=== PATIENT | male | born 1960 | race Caucasian/White ===

== ENCOUNTER 2018-02-01 09:04 | Inpatient (IN) | payer OTHER ==
[~2018-02-01] VITALS: Ht 175.3 cm; Wt 98.0 kg
[2018-02-01 09:09] VITALS: BP 128/78
[2018-02-01] MEDS ORDERED: ADVAIR HFA 230M12 GM INH (09:16)
[2018-02-01] MEDS ORDERED: SINGULAIR 10 MG10 M1 PO (09:16)
[2018-02-01] MEDS ORDERED: INCRUSE ELLI62.5 MCG (09:16)
[2018-02-01] MEDS ORDERED: PROAIR HFA8.5 GM INH (09:17)
[2018-02-01] MEDS ORDERED: FLONASE 0.05%50 MCG NASAL (09:17)
[2018-02-01] MEDS ORDERED: DIFLUCAN200 MG PO (09:18)
[2018-02-01 09:41] LABS: HEMATOCRIT 47.1 % (42.0-52.0); HEMOGLOBIN 15.7 gm/dL (14.0-18.0); MCH 29.7 pg (26.0-34.0); MCHC 33.3 g/dL (28.0-37.0); MCV 89.2 fL (80.0-100.0); NUCLEATED RBCS 0 /100WBC; PLATELET COUNT* 224 thou/uL (150-400); RBC 5.29 mil/uL (4.50-6.00); WBC 10.1 thou/uL (4.0-11.0)
[2018-02-01 09:49] LABS: CALCIUM 8.6 mg/dL (8.5-10.1); CREATININE 1.3 mg/dL (0.6-1.3)
[2018-02-01 09:54] LABS: ALBUMIN 3.7 g/dL (3.4-5.0); MAGNESIUM 2.1 mg/dL (1.8-2.4); TOTAL BILIRUBIN 0.7 mg/dL (<0.1-1.0); TOTAL PROTEIN 7.1 g/dL (6.4-8.2)
[2018-02-01 10:16] LABS: ABSOLUTE BASOPHILS 0.1 thou/uL (0.0-0.2); ABSOLUTE EOSINOPHILS 2.6 thou/uL (0.0-0.7); ABSOLUTE LYMPHOCYTES 2.9 thou/uL (0.8-5.3); ABSOLUTE MONOCYTES 0.7 thou/uL (0.0-1.2); ABSOLUTE NEUTROPHILS 3.7 thou/uL (1.6-8.1); ATYPICAL LYMPHS 1 %
[2018-02-01 10:18] LABS: PLATELET ESTIMATE ADEQUATE
[2018-02-01 11:42] LABS: APTT 28.5 Seconds (25.0-31.3); PROTIME 10.6 Seconds (9.20-11.50)
[2018-02-01 14:34] VITALS: BP 0/0; BP 121/70
[2018-02-01 14:50] VITALS: BP 132/71
[2018-02-01 16:17] LABS: BE -1.7 mmol/L (-2 to +3); HCO3 22.9 mmol/L (22.0-26.0); PCO2 38.6 mmHg (35.0-45.0); PO2 74.2 mmHg (75.0-100.0); pH 7.391 (7.340-7.450)
[2018-02-01 17:39] VITALS: BP 156/91
[2018-02-01 20:49] VITALS: BP 142/65
[2018-02-02] VITALS: BP 110/52
[2018-02-02 04:00] VITALS: BP 118/65
[2018-02-02 04:44] LABS: HEMATOCRIT 42.5 % (42.0-52.0); HEMOGLOBIN 13.9 gm/dL (14.0-18.0); MCH 29.2 pg (26.0-34.0); MCHC 32.6 g/dL (28.0-37.0); MCV 89.7 fL (80.0-100.0); MPV 8.8 fl. (7.2-11.1); PLATELET COUNT* 217 thou/uL (150-400); RBC 4.74 mil/uL (4.50-6.00); RDW-CV 14.1 % (10.5-14.5); WBC 16.1 thou/uL (4.0-11.0)
[2018-02-02 05:12] LABS: CALCIUM 8.4 mg/dL (8.5-10.1); MAGNESIUM 2.1 mg/dL (1.8-2.4); POTASSIUM 4.4 mmol/L (3.5-5.1)
[2018-02-02 08:00] VITALS: BP 111/63
--- NOTE | 2018-02-02 11:20 | CON ---
[address] [address] CONSULTATION Name: KRISHNA CERNA Room: [address] M.R.#: [id number] Admission: 02/01/18 Attend Phys: Jonas Philippe MD Discharge: Date of : 64 Report #: [id number] THIS REPORT FOR: //name// CC: [facility] physician/PCP Jonas Philippe HISTORY OF PRESENT ILLNESS: This is a 57-year-old male patient who told me he had asthma since childhood, although things had been relatively quiet till 10 years ago. Prior to 10 years he would use albuterol here and there, but says for the last 10 years his asthma has become really persistent and severe. He received multiple courses of prednisone taper over the last 10 years; however, never been hospitalized before this time for it, never been intubated. He has strong family history of asthma. 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 He presented with increasing shortness of breath for a while now. He is even short of breath at rest with active wheezes. Although he did not have any fever or chills, his cough is so severe that he actually had multiple episodes of syncope in the last few days, which he had only once 3 years ago. He denied any fever or chills. He reported some headache with the cough. He denied any skin allergies. He reports that he saw Dr. [facility]anc[facility] [place]. He is currently on Advair, albuterol inhaler, albuterol nebulizer. He is on Incruse. The Incruse was added 3 months ago and he was told he had significant allergies. He had the allergy test, although he is not ready to start the allergy shots per the patient. He was actually supposed to see us in the office today, but because of distress he came into the ER. ALLERGIES: No known drug allergies, but he has multiple environmental allergies. HOME MEDICATIONS: He is on Advair, Flonase, Incruse, albuterol sulfate, Singulair, albuterol nebulizer and inhaler. PAST MEDICAL HISTORY: Severe persistent asthma. PAST SURGICAL HISTORY: No major surgeries other than nasal surgery. FAMILY HISTORY: Very strong family history of asthma. SOCIAL HISTORY: He does not smoke, drink alcohol or abuse drugs. REVIEW OF SYSTEMS: Twelve-point review of systems reviewed with the patient and negative other than as mentioned above. PHYSICAL EXAMINATION: VITAL SIGNS: He is on 2 liters oxygen, O2 saturation more than 90%, [place] [address] CONSULTATION Name: KRISHNA CERNA Room: [address] M.R.#: [id number] Admission: 02/01/18 Attend Phys: Jonas Philippe MD Discharge: Date of : 64 Report #: [id number] pressure 111/63, pulse rate of 100, temperature 36.7, respiratory rate is 20. HEENT: Head normocephalic, atraumatic. Pupils reactive to light. Not pale, not jaundiced. External ears look healthy and normal. Oral cavity, moist mucous membrane, Mallampati of 2. CHEST: Extensive wheezes heard bilaterally with diminished air movement. No crackles. HEART: S1, S2, no murmur. ABDOMEN: Benign, soft, lax, nontender. EXTREMITIES: Lower extremity, no edema. NEUROLOGIC: Moves all 4 extremities spontaneously. No focal weakness. SKIN: Normal for age and race, no rash. LYMPHATICS: No palpable lymph node. LABORATORY DATA: ABG 7.39/38/74 on room air. His creatinine is 0.1, BUN 21, potassium 4.4. His white blood count 10.1, hemoglobin 15.7 and platelets of 229. His absolute eosinophil count is 2.6 thousand per microliter. His chest x-ray was clear. IMPRESSION: 1. Acute respiratory failure. 2. Asthma exacerbation. 3. Severe persistent asthma. The patient with severe persistent asthma, saw an target aircraft technician before and has been told he has significant number of environmental allergies. At this point, he will be on IV steroids, scheduled nebulization treatments. The patient is on Incruse at home, Advair, had multiple doses of steroids in the past few months and he had syncopal episodes with cough. I will do an echocardiogram to make sure there are no cardiac structure abnormalities precipitated by the cough causing the syncope. He has elevated eosinophil, we will check his IgE level. He had allergy test done as an outpatient. Likely, he will need a repeat RAST at this point. We need to evaluate for possible benefits of Xolair at this point.Reviewed out patient negra, his FVC is low, will do Ct chest without contrast Discussed with the patient. Thank you for the consult. <ELECTRONICALLY SIGNED> By: Toby Rankin MD 02/02/18 1120 1047 [id number] Rankin MD /nt
[2018-02-02 11:23] LABS: ABSOLUTE MONOCYTES 0.5 thou/uL (0.0-1.2); ABSOLUTE NEUTROPHILS 14.7 thou/uL (1.6-8.1); PLATELET ESTIMATE ADEQUATE
[2018-02-02 12:27] VITALS: BP 122/44
[2018-02-02 16:00] VITALS: BP 115/49
--- NOTE | 2018-02-02 17:29 | 2DMMODE ---
[place] [address] 2 D/M-MODE ECHOCARDIOGRAM Name: KRISHNA CERNA Room: [address] IN [facility]#: [id number] Admission: 02/01/18 Attend Phys: Jonas Philippe, Discharge: Date of : 64 Date of Service: 02/02/18 1729 Report #: [id number] THIS REPORT FOR: //name// APPROVED REPORT Study performed: 02/02/2018 15:40:23 EXAM: Comprehensive 2D, Doppler, and color-flow Echocardiogram Patient Location: In-Patient Room #: 221 Status: routine BSA: 2.13 HR: 113 bpm BP: 122/44 mmHg Rhythm: NSR Other Information Study Quality: Good Indications Dyspnea Syncope 2D Dimensions IVSd: 11.02 (7-11mm) LVOT Diam: 20.30 (18-24mm) LVDd: 51.06 mm PWd: 9.43 (7-11mm) Ascending Ao: 30.90 (22-36mm) LVDs: 25.41 (25-40mm) Aortic Root: 27.07 mm Volumes Left Atrial Volume (Systole) LA ESV Index: 22.40 mL/m2 Aortic Valve AoV Peak Juan.: 2.16 m/s AO Peak Gr.: 18.72 mmHg LVOT Max P.49 mmHg AO Mean Gr.: 9.89 mmHg LVOT Mean P.45 mmHg LVOT Max V: 1.69 m/s AO V2 VTI: 29.49 cm LVOT Mean V: 1.06 m/s ALMA (VTI): 3.01 cm2 LVOT V1 VTI: 27.45 cm Mitral Valve E/A Ratio: 0.75 MV Decel. Time: 64.68 [place] [address] 2 D/M-MODE ECHOCARDIOGRAM Name: KRISHNA CERNA Room: [address] IN ..#: [id number] Admission: 02/01/18 Attend Phys: Jonas Philippe, Discharge: Date of : 64 Date of Service: 02/02/18 0009 Report #: [id number] MV E Max Juan.: 1.25 m/s MV PHT: 18.76 ms MVA (PHT): 11.73 cm2 TDI E/Lateral E': 7.81 E/Medial E': 11.36 Medial E' Juan.: 0.11 m/s Lateral E' Juan.: 0.16 m/s Pulmonary Valve PV Peak Juan.: 1.54 m/s PV Peak Gr.: 9.52 mmHg Tricuspid Valve RAP Estimate: 5.00 mmHg TR Peak Gr.: 30.12 mmHg RVSP: 35.00 mmHg PA Pressure: 35.00 mmHg Left Ventricle The left ventricle is normal size. There is normal LV segmental wall motion. There is normal left ventricular wall thickness. Left ventricular systolic function is normal. The left ventricular ejection fraction is within the normal range. LVEF is 65-70%. Grade I - abnormal relaxation pattern. Right Ventricle The right ventricle is normal size. The right ventricular systolic function is normal. Atria The left atrium size is normal. The right atrium size is normal. Aortic Valve The aortic valve is normal in structure. No aortic regurgitation is present. There is no aortic valvular stenosis. Mitral Valve The mitral valve is normal in structure. Trace mitral regurgitation. No evidence of mitral valve stenosis. Tricuspid Valve The tricuspid valve is normal in structure. Trace tricuspid regurgitation. estimate pa pressure 35 mm Hg Pulmonic Valve Pulmonic valve is not well visualized. There is [place] [address] 2 D/M-MODE ECHOCARDIOGRAM Name: KRISHNA CERNA KRISTIE Room: [address] IN [facility]#: [id number] Admission: 02/01/18 Attend Phys: Jonas Philippe, Discharge: Date of : 64 Date of Service: 02/02/18 1729 Report #: [id number] regurgitation. Great Vessels The aortic root is normal in size. IVC is not well visualized. Pericardium There is no pericardial effusion. <Conclusion> Left ventricular systolic function is normal. The left ventricular ejection fraction is within the normal range. <ELECTRONICALLY SIGNED> By: Alfonso Boothe MD, FACC 02/02/181728 28 28 Alfonso Boothe MD, FACC /INF
[2018-02-02 20:15] VITALS: BP 128/65
[2018-02-03] VITALS: BP 115/65
[2018-02-03 04:00] VITALS: BP 126/72
[2018-02-03 05:16] LABS: HEMATOCRIT 43.2 % (42.0-52.0); MCH 29.4 pg (26.0-34.0); MCHC 32.3 g/dL (28.0-37.0); MPV 9.3 fl. (7.2-11.1); RBC 4.75 mil/uL (4.50-6.00); RDW-CV 14.4 % (10.5-14.5); WBC 20.6 thou/uL (4.0-11.0)
[2018-02-03 05:29] LABS: CALCIUM 8.9 mg/dL (8.5-10.1); MAGNESIUM 2.4 mg/dL (1.8-2.4); POTASSIUM 4.8 mmol/L (3.5-5.1)
[2018-02-03 09:18] VITALS: BP 123/59
[2018-02-03 11:49] VITALS: BP 119/59
[2018-02-03 15:38] VITALS: BP 116/59
[2018-02-03 20:00] VITALS: BP 124/64
[2018-02-04] VITALS (7 sets, daily range): BP systolic 111–139; BP diastolic 56–74
[2018-02-05 04:33] VITALS: BP 131/75
[2018-02-05 04:56] LABS: HEMATOCRIT 41.2 % (42.0-52.0); HEMOGLOBIN 13.5 gm/dL (14.0-18.0); MCH 29.3 pg (26.0-34.0); MCHC 32.8 g/dL (28.0-37.0); MCV 89.3 fL (80.0-100.0); RBC 4.62 mil/uL (4.50-6.00); RDW-CV 14.5 % (10.5-14.5); WBC 13.6 thou/uL (4.0-11.0)
[2018-02-05 05:09] LABS: CALCIUM 8.6 mg/dL (8.5-10.1); MAGNESIUM 2.6 mg/dL (1.8-2.4); POTASSIUM 4.2 mmol/L (3.5-5.1)
[2018-02-05 08:47] VITALS: BP 131/78
[2018-02-05 12:00] VITALS: BP 133/77
[2018-02-05 16:00] VITALS: BP 142/86
[2018-02-05 20:28] VITALS: BP 111/62
[2018-02-06] VITALS: BP 123/66
[2018-02-06 04:00] VITALS: BP 135/80
[2018-02-06 04:49] LABS: HEMATOCRIT 42.2 % (42.0-52.0); MCH 29.9 pg (26.0-34.0); MCHC 33.1 g/dL (28.0-37.0); MCV 90.3 fL (80.0-100.0); MPV 9.2 fl. (7.2-11.1); RBC 4.67 mil/uL (4.50-6.00); RDW-CV 14.3 % (10.5-14.5); WBC 12.9 thou/uL (4.0-11.0)
[2018-02-06 05:56] LABS: ALBUMIN 3.3 g/dL (3.4-5.0); CALCIUM 8.3 mg/dL (8.5-10.1); CREATININE 1.1 mg/dL (0.6-1.3); MAGNESIUM 2.7 mg/dL (1.8-2.4); POTASSIUM 4.7 mmol/L (3.5-5.1); TOTAL BILIRUBIN 0.5 mg/dL (<0.1-1.0); TOTAL PROTEIN 5.8 g/dL (6.4-8.2)
[2018-02-06 08:00] VITALS: BP 134/74
[2018-02-06 12:00] VITALS: BP 148/73
[2018-02-06 16:00] VITALS: BP 141/78
[2018-02-06 20:00] VITALS: BP 123/75
[2018-02-07 01:30] VITALS: BP 137/83
[2018-02-07 04:00] VITALS: BP 138/88
[2018-02-07 08:00] VITALS: BP 143/87
[2018-02-07 12:00] VITALS: BP 133/81
[2018-02-07 16:00] VITALS: BP 141/93
[2018-02-07 20:00] VITALS: BP 137/72
[2018-02-08] VITALS: BP 90/45
[2018-02-08 04:39] LABS: CALCIUM 7.9 mg/dL (8.5-10.1); MAGNESIUM 2.5 mg/dL (1.8-2.4)
[2018-02-08 04:42] LABS: HEMATOCRIT 43.7 % (42.0-52.0); HEMOGLOBIN 14.4 gm/dL (14.0-18.0); MCH 29.6 pg (26.0-34.0); MCV 89.9 fL (80.0-100.0); MPV 8.5 fl. (7.2-11.1); RBC 4.86 mil/uL (4.50-6.00); WBC 14.8 thou/uL (4.0-11.0)
[2018-02-08 05:04] VITALS: BP 146/79
[2018-02-08 08:00] VITALS: BP 131/83
[2018-02-08 12:00] VITALS: BP 133/81
[2018-02-08 16:00] VITALS: BP 124/85
[2018-02-08 20:10] VITALS: BP 130/77
[2018-02-09] VITALS: BP 135/90
[2018-02-09 04:00] VITALS: BP 130/78
[2018-02-09 08:00] VITALS: BP 140/68
[2018-02-09 12:00] VITALS: BP 131/75
[2018-02-09] MEDS ORDERED: BROVANA15 MCG/2 M INH (13:43)
[2018-02-09] MEDS ORDERED: PULMICORT0.5 MG/22 INH (13:44)
[2018-02-09] MEDS ORDERED: PEPCID20 MG PO (13:45)
[2018-02-09] MEDS ORDERED: IPRAT-ALBUT 0.5-3 ML INH (13:47)
[2018-02-09] MEDS ORDERED: PROTONIX40 M1 PO (13:48)
[2018-02-09] MEDS ORDERED: PREDNISONE 20 M20 MG PO (13:50)
[2018-02-09 13:52] VITALS: BP 131/75
== END 2018-02-09 14:32 | disposition home or self-care (01) | DRG 189 ==
LOC: M.ERS 09:04 → M.TBA-ER 12:41 → M.2W 12:41
PROVIDERS: Family Medicine; Personal Emergency Response Attendant; ADMIT Internal Medicine
DX: J96.00 Acute respiratory failure, unspecified whether with hypoxia or hypercapnia (principal); J45.51 Severe persistent asthma with (acute) exacerbation; I50.30 Unspecified diastolic (congestive) heart failure; E66.9 Obesity, unspecified; R73.9 Hyperglycemia, unspecified; T38.0X5A Adverse effect of glucocorticoids and synthetic analogues, initial encounter; L92.8 Other granulomatous disorders of the skin and subcutaneous tissue; D72.1 Eosinophilia; Z23 Encounter for immunization; Z82.5 Family history of asthma and other chronic lower respiratory diseases; Z68.31 Body mass index [BMI] 31.0-31.9, adult; Z91.048 Other nonmedicinal substance allergy status; Z79.899 Other long term (current) drug therapy

== ENCOUNTER → 2019-04-22 | Outpatient (CLI) | payer BC ==
[~2019-04-22] MED LIST: ADVAIR HFA 230M12 GM INH; BROVANA15 MCG/2 M INH; DIFLUCAN200 MG PO; FLONASE 0.05%50 MCG NASAL; INCRUSE ELLI62.5 MCG; IPRAT-ALBUT 0.5-3 ML INH; PEPCID20 MG PO; PREDNISONE 20 M20 MG PO; PROAIR HFA8.5 GM INH; PROTONIX40 M1 PO; PULMICORT0.5 MG/22 INH; SINGULAIR 10 MG10 M1 PO
== END ==
LOC: M.RAD 13:47
DX: M79.89 Other specified soft tissue disorders (principal); R79.89 Other specified abnormal findings of blood chemistry

== ENCOUNTER 2020-01-15 22:58 | Observation (INO) | payer BC ==
[~2020-01-15] VITALS: Ht 175.3 cm; Wt 99.8 kg
[2020-01-15 23:06] VITALS: BP 187/104
[2020-01-15 23:34] LABS: ABSOLUTE BASOPHILS 0.1 thou/uL (0.0-0.2); ABSOLUTE LYMPHOCYTES 5.4 thou/uL (0.8-5.3); ABSOLUTE MONOCYTES 1.7 thou/uL (0.0-1.2); BASOPHILS 0.9 %; EOSINOPHILS 6.9 %; HEMATOCRIT 47.9 % (42.0-52.0); HEMOGLOBIN 15.7 gm/dL (14.0-18.0); LYMPHOCYTES 38.3 %; MCH 28.7 pg (26.0-34.0); MCHC 32.7 g/dL (28.0-37.0); MCV 87.8 fL (80.0-100.0); MONOCYTES 11.8 %; MPV 8.6 fl. (7.2-11.1); NUCLEATED RBCS 0 /100WBC; PLATELET COUNT* 267 thou/uL (150-400); POLYS 42.1 %; RBC 5.45 mil/uL (4.50-6.00); RDW-CV 13.8 % (10.5-14.5); WBC 14.2 thou/uL (4.0-11.0)
[2020-01-15 23:43] LABS: CALCIUM 8.8 mg/dL (8.5-10.1); CREATININE 1.3 mg/dL (0.6-1.3); POTASSIUM 3.4 mmol/L (3.5-5.1)
[2020-01-15 23:54] LABS: ALBUMIN 3.6 g/dL (3.4-5.0); MAGNESIUM 2.1 mg/dL (1.8-2.4); TOTAL BILIRUBIN 0.5 mg/dL (<0.1-1.0); TOTAL PROTEIN 7.6 g/dL (6.4-8.2)
--- NOTE | 2020-01-16 01:34 | NUR ---
PT RETURNED FROM CT.
[2020-01-16 07:22] VITALS: BP 140/66
[2020-01-16 10:57] VITALS: BP 122/73
--- NOTE | 2020-01-16 12:51 | EKG ---
[place] [address] ELECTROCARDIOGRAM REPORT Name: KRISHNA CERNA Room: [address] M.R.#: [id number] Admission: 01/16/20 Attend Phys: Hector Silvestre Discharge: Date of : 64 Date of Service: 01/15/20 2303 Report #: [id number] THIS REPORT FOR: //name// [facility] ED Test Date: 2020-01-15 Test Time: 23:03:32 Pat Name: KRISHNA CERNA Department: Room: [facility] Gender: M Director Systems: [place] : 1960 Requested By: August Rome Order Number: [id number] MD: Jeferson Tinoco Measurements Intervals [employer] Rate: 111 P: 58 HI: 178 QRS: -42 QRSD: 99 T: 23 QT: 342 QTc: 465 Interpretive Statements Sinus tachycardia Left axis deviation Baseline wander in lead(s) V6 No previous ECG available for comparison Electronically Signed On 01-16-2020 12:50:49 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
[2020-01-16 14:45] VITALS: BP 131/79
[2020-01-16 16:00] VITALS: BP 129/79
--- NOTE | 2020-01-16 17:59 | NUR ---
PT IS AO X4 FROM ED THIS AFTERNOON, HE CAME IN WITH SUDDENT ONSET CHEST AND ARM PAIN. HE STATES HIS FATER HAD A HEART ATTACK AND HIS BROTHER HAS HTN. HE IS CURRENTLY ASYMPTOMATIC . HE IS AND HAS BEEN NSR ON TELE, VSS. HE IS TO SEE CARDIOLGY IN THE AM. EMORY
[2020-01-16 21:52] VITALS: BP 122/69
[2020-01-17] VITALS: BP 134/77
[2020-01-17 04:00] VITALS: BP 127/80
--- NOTE | 2020-01-17 05:34 | NUR ---
PT ALERT AND ORIENTED, UP AD AMANDA, NO PAIN/NAUSEA/. NO SOB. CARDIOLOGY CONSULTED. SLEPT ALL NIGHT.
[2020-01-17 06:55] LABS: CALCIUM 8.2 mg/dL (8.5-10.1); CREATININE 1.2 mg/dL (0.6-1.3); MAGNESIUM 2.3 mg/dL (1.8-2.4); POTASSIUM 3.8 mmol/L (3.5-5.1)
[2020-01-17 08:30] VITALS: BP 126/81
--- NOTE | 2020-01-17 09:56 | NUR ---
cm completed the initial assessment to discuss d/c planning. pt lives home w/his family. pt has good support system. pt is employeed. active. independent w/adls. pt has nebulizer. pt has no hx w/snf or hh. there are no anticipated cm needs at this time. cm to cont to follow.
[2020-01-17 12:00] VITALS: BP 130/80
--- NOTE | 2020-01-17 13:43 | CON ---
[address] [address] CONSULTATION Name: CERNAKRISHNA LOPEZ Room: [address] Alexandre Asif#: [id number] Admission: 01/16/20 Attend Phys: Hector Zapata, Discharge: Date of : 64 Report #: [id number] THIS REPORT FOR: //name// cc: Walter Molina MD, Dean L. MD ~ DATE OF SERVICE: 01/17/2020 CARDIOLOGY CONSULTATION PRIMARY CARE PHYSICIAN: Dr. Walter Molina. HISTORY OF PRESENT ILLNESS: The patient is a 59-year-old male who I was asked to see in the hospital today after complaining of chest pain. The patient has a long history of asthma. He was hospitalized here at [place] in 01/2018 with asthma exacerbation. He has been followed by the Pulmonary service. He does use inhalers at home. He is not very active at this time. 2 months ago, he was driving back from [place] and he suddenly felt nervous and started shaking all over and felt lightheaded. He then notes that 2 days ago he was at home when he again felt lightheaded, felt nervous, and began to shake all over. He felt some discomfort on the left side of his chest and left shoulder. He felt short of breath. He denied the pain being related to food. No belching or diarrhea. He has had no bleeding. He denied trauma to his chest or rash. He denies fever, cough or edema. He came to the hospital and was admitted for further evaluation and treatment. PAST MEDICAL HISTORY: Significant for history of hypertension, diabetes, hyperlipidemia. PAST SURGICAL HISTORY: He has had sinus surgeries. MEDICATIONS: On admission included Flonase, Singulair, Advair, and Pepcid. ALLERGIES: He had no known drug allergies. FAMILY HISTORY: His mother had hypertension. SOCIAL HISTORY: He is originally from [place]. He moved to [place] 10 years ago. 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 No smoking or alcohol abuse. REVIEW OF SYSTEMS: He apparently does snore at night. No history of asthma. No history of liver disease or kidney disease. 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 No cancer. No psychiatric illness. No chronic skin condition. PHYSICAL EXAMINATION: [place] [address] CONSULTATION Name: KRISHNA CERNA [address] [id number] Admission: 01/16/20 Attend Phys: Hector Zapata, Discharge: Date of : 64 Report #: [id number] GENERAL: Revealed a middle-aged male, lying in bed, appeared in no distress. VITAL SIGNS: He had a blood pressure of 130/80, pulse 70, and he is afebrile. HEENT: He was anicteric. Conjunctivae are pink. Mucous membranes moist. NECK: Veins nondistended. No carotid bruits. Neck supple. CHEST: Clear to auscultation. CARDIOVASCULAR: Regular rate and rhythm. ABDOMEN: Soft. EXTREMITIES: Had no edema. Posterior tibial pulse 1+ bilaterally. SKIN: Cool and dry. NEUROLOGIC: Nonfocal. LABORATORY DATA: His ECG on admission showed a sinus rhythm. There was no ST or T-wave change noted. His workup, he actually had an echocardiogram here 2 years ago in 2018 when he was admitted with asthma that showed normal ejection fraction. His x-rays, he actually had a portable chest x-ray on admission that showed normal heart size, clear lung winkler. Previous CT scan of the chest 2 years ago showed no acute abnormality. His lab work, sodium 136 and creatinine 1.2. Troponins all 0.06. White blood cell count 14.2 and hemoglobin 15.7. IMPRESSION AND RECOMMENDATIONS: 1. Chest pain. Atypical for angina. acute coronary syndrome. I would recommend a stress echocardiogram. 2. Palpitations. No evidence of arrhythmias. 3. Asthma. 4. Snoring at night. I would rule out sleep apnea. <ELECTRONICALLY SIGNED> By: Alfonso Boothe MD, FACC 01/17/20 1343 0817 0831Dalea Boothe MD, FACC /nt
--- NOTE | 2020-01-17 15:14 | EXE ---
[place] [address] STRESS ECHOCARDIOGRAM Name: KRISHNA CERNA KRISTIE Room: [address] Laya#: [id number] Admission: 01/16/20 Attend Phys: Hector Silvestre Discharge: Date of : 64 Date of Service: 01/17/20 1513 Report #: [id number] THIS REPORT FOR: cc: Walter Molina MD, Dean L. MD Blick,Alfonso Henry MD [facility] ~ APPROVED REPORT Study performed: 01/17/2020 14:07:38 Exam: Stress Echocardiogram Indication: Chest pain Patient Location: In-Patient Stress Nurse: Kim Boogie RN Room #: [facility] Supervising Physician: Alfonso Boothe MD Ht: 5 ft 9 in HR: 78 bpm BP: 142/93 mmHg Medical History Cardiac Risk Factors: Age, , FHX of CAD Procedure The patient underwent an Exercise Stress Test using the Alessio Protocol. Blood pressure, heart rate, and EKG were monitored. An Echocardiogram was performed by certified control systems technician in four stages in quad fashion. At peak stress, four selected images were obtained and placed side by side with resting images for comparison. Stress Test Details Stress Test: Exercise stress testing was performed using a Alessio protocol. HR Resting HR: 78 bpm Max Heart Rate (APMHR): 163 bpm Max HR Achieved: 152 bpm Target HR (85% APMHR): 138 bpm % of APMHR: 93 Recovery HR: 107 bpm HR response to stress: Normal HR response to stress BP Resting BP: 142/93 mmHg Max BP: 215/104 mmHg Recovery BP: 135/79 [place] [address] STRESS ECHOCARDIOGRAM Name: YONI CERNAJose G FLOWERS [address]: [address]#: [id number] Admission: 01/16/20 Attend Phys: Hector Silvestre Discharge: Date of : 64 Date of Service: 01/17/20 1513 Report #: [id number] BP response to stress: Normal blood pressure response to stress. ECG Resting ECG: Sinus Rhythm Stress ECG: Sinus Tachycardia ST Change: Normal Maximum ST Deviation: 0 mm Arrhythmia: None Recovery ECG: Sinus Rhythm Recovery ST Change: Normal Recovery ST Deviation: 0 mm Recovery Arrhythmia: None Clinical Reason for Termination: Completed protocol Exercise duration: 10 min 10 sec Highest Stage Achieved: Stage 4: 4.2 mph at 16% grade. Exercise capacity: 11.37 METs Pre-Stress Echo The resting Echocardiogram showed normal left ventricular contractility with an estimated Ejection Fraction of about 60-65%. Post-Stress Echo The stress Echocardiogram showed normal left ventricular contractility with an estimated Ejection Fraction of about >70%. Compared to rest, there were no stress-induced wall motion abnormalities. Conclusion Clinical Response: Non-ischemic Exercise Capacity: Superior Stress ECG Response: Non-ischemic Stress Echo Images: Non-ischemic low risk stress echo for predicting future cardiac events Other Information Study Quality: Fair <Conclusion> low risk stress echo for predicting future cardiac events <ELECTRONICALLY SIGNED> By: Alfonso Boothe MD, [facility] 01/17/20 1513 1513 1513 Alfonso Boothe MD, FACC /INF
[2020-01-17 15:34] VITALS: BP 130/80
--- NOTE | 2020-01-17 16:08 | NUR ---
ASSESSMENT DOCUMENTED. MEDS GIVEN PER E-MAR. IV PATENT. PT WENT TO STRESS ECHO THIS SHIFT. DISCHARGE ORDERS RECIEVED. FLU SHOT GIVEN. DISCHARGE EDUCATION GIVEN. PT WHEELED OUT TO CAR WITH SPOUCE.
[2020-01-17 16:11] VITALS: BP 130/80
== END 2020-01-17 16:00 | disposition home or self-care (01) ==
LOC: M.ERS 22:58 → M.2W 01-16 01:10 → M.TBA-ER 01-16 01:10 → M.2W 01-16 14:50
PROVIDERS: Emergency Medicine Emergency Medical Services; ADMIT Family Medicine; ATTEND Family Medicine
DX: R07.89 Other chest pain (principal); I20.9 Angina pectoris, unspecified; J45.41 Moderate persistent asthma with (acute) exacerbation; E66.01 Morbid (severe) obesity due to excess calories; I10 Essential (primary) hypertension; R65.10 Systemic inflammatory response syndrome (SIRS) of non-infectious origin without acute organ dysfunction; E87.6 Hypokalemia; F41.9 Anxiety disorder, unspecified; R06.83 Snoring; E11.9 Type 2 diabetes mellitus without complications; E78.5 Hyperlipidemia, unspecified; Z79.899 Other long term (current) drug therapy; Z20.828 Contact with and (suspected) exposure to other viral communicable diseases; Z68.32 Body mass index [BMI] 32.0-32.9, adult

== ENCOUNTER → 2020-01-25 | Outpatient (CLI) | payer BC | LOC: M.PUL 16:30 | PROVIDERS: ATTEND Internal Medicine Critical Care Medicine | DX: J45.50 Severe persistent asthma, uncomplicated (principal) ==

== ENCOUNTER → 2020-06-13 | Outpatient (CLI) | payer OTHER ==
--- NOTE | 2020-06-28 18:02 | SLEEP ---
[address] [address] SLEEP STUDY REPORT Name: KRISHNA CERNA Room: [facility]#: [id number] Admission: 06/13/20 Attend Phys: Isidoro Byers MD Discharge: Date of : 64 Report #: [id number] THIS REPORT FOR: cc: Walter Molina MD, Dean L. MD Pervez,Isidoro TREVIZO ~ This study has been reviewed in its entirety by a board certified sleep specialist DATE OF SERVICE: 06/13/2020 SLEEP STUDY INDICATION FOR SLEEP STUDY: Excessive daytime sleepiness. INTERPRETATION: Total duration of the study is 511 minutes. In this time duration, we recorded a very large number of sleep related respiratory events. These included 372 obstructive apneas. In addition to 43 mixed apneas and 10 central apneas, there were also 60 hypopneas recorded. Overall, apnea-hypopnea index is very high at 57. Body position data indicates the patient was lying on the right side throughout the sleep study. The patient had severe hypoxemia during this sleep study. The patient overall spent 132 minutes below an O2 saturation of 88%. The patient at one point even desaturated to 62% O2 saturation and overall spent 50 minutes below an O2 saturation of 80%. Mean heart rate is 74. IMPRESSION: 1. Severe obstructive sleep apnea with an apnea-hypopnea index of 57. 2. There is severe nocturnal hypoxemia. The lowest O2 saturation is 62%. The patient spent 132 minutes below an O2 saturation of 88%, out of which 50 minutes were spent at an O2 saturation less than 80%. 3. Body position data indicates the patient was lying on the right side throughout the sleep study. RECOMMENDATIONS: 1. Recommend proceeding to an in-lab sleep study for positive airway pressure titration. Due to the presence of severe nocturnal hypoxemia, it would not be appropriate to use a CPAP auto titrated device without performing a titration in the sleep lab. It is noted that I had, in fact, initially ordered a sleep study in the sleep lab; however, the patient's insurance had denied this and therefore, we performed a home sleep study first. 2. [place] [address] SLEEP STUDY REPORT Name: KRISHNA CERNA Room: [facility]#: [id number] Admission: 06/13/20 Attend Phys: Isidoro Byers MD Discharge: Date of : 64 Report #: [id number] 3. Recommend avoiding driving or other activities requiring vigilance if drowsy. I will also evaluate for other etiologies of hypoxemia. This entire sleep study was reviewed by board certified sleep physician. <ELECTRONICALLY SIGNED> By: Isidoro Byers MD 06/28/20 1802 1701 1737Anikhil Byers MD /nt
== END ==
LOC: M.SLEEPLAB 04-11 21:00 → M.PUL 04-20 09:00
PROVIDERS: ATTEND Internal Medicine Critical Care Medicine
DX: G47.33 Obstructive sleep apnea (adult) (pediatric) (principal); G47.10 Hypersomnia, unspecified

== ENCOUNTER → 2020-07-03 | Outpatient (CLI) | payer BC ==
--- NOTE | 2020-07-03 12:36 | 2DMMODE ---
[place] [address] 2 D/M-MODE ECHOCARDIOGRAM Name: YONI CERNAJose G FLOWERS Room: [facility]#: [id number] Admission: 07/03/20 Attend Phys: Isidoro Byers MD Discharge: Date of : 64 Date of Service: 07/03/20 1235 Report #: [id number] THIS REPORT FOR: cc: Walter Molina MD, Dean L. MD Holkins,Sedrick Gallagher MD [facility] ~ APPROVED REPORT Study performed: 07/03/2020 09:53:47 EXAM: Comprehensive 2D, Doppler, and color-flow Echocardiogram Patient Location: Out-Patient BSA: 2.11 HR: 77 bpm BP: 122/68 mmHg Other Information Study Quality: Good Indications Dyspnea 2D Dimensions IVSd: 10.72 (7-11mm) LVOT Diam: 20.48 (18-24mm) LVDd: 51.04 mm PWd: 9.87 (7-11mm) Ascending Ao: 25.63 (22-36mm) LVDs: 30.48 (25-40mm) Aortic Root: 27.04 mm Volumes Left Atrial Volume (Systole) LA ESV Index: 12.90 mL/m2 Aortic Valve AoV Peak Juan.: 1.43 m/s AO Peak Gr.: 8.18 mmHg LVOT Max P.43 mmHg AO Mean Gr.: 4.43 mmHg LVOT Mean P.30 mmHg LVOT Max V: 1.05 m/s AO V2 VTI: 26.62 cm LVOT Mean V: 0.70 m/s ALMA (VTI): 2.57 cm2 LVOT V1 VTI: 20.74 cm Mitral Valve E/A Ratio: 1.05 [place] [address] 2 D/M-MODE ECHOCARDIOGRAM Name: KRISHNA ECRNA Room: [facility]#: [id number] Admission: 07/03/20 Attend Phys: Isidoro Byers MD Discharge: Date of : 64 Date of Service: 07/03/20 1235 Report #: [id number] MV Decel. Time: 186.47 ms MV E Max Juan.: 1.01 m/s MV PHT: 54.08 ms MVA (PHT): 4.07 cm2 TDI E/Lateral E': 7.77 E/Medial E': 10.10 Medial E' Juan.: 0.10 m/s Lateral E' Juan.: 0.13 m/s Pulmonary Valve PV Peak Juan.: 1.41 m/s PV Peak Gr.: 8.01 mmHg Tricuspid Valve RAP Estimate: 5.00 mmHg TR Peak Gr.: 26.10 mmHg RVSP: 31.10 mmHg PA Pressure: 31.10 mmHg Left Ventricle The left ventricle is normal size. There is normal LV segmental wall motion. There is normal left ventricular wall thickness. Left ventricular systolic function is normal. The left ventricular ejection fraction is within the normal range. LVEF is 55-60%. The left ventricular diastolic function is normal. Right Ventricle The right ventricle is normal size. The right ventricular systolic function is normal. Atria The left atrium size is normal. The right atrium size is normal. Aortic Valve The aortic valve is normal in structure. No aortic regurgitation is present. There is no aortic valvular stenosis. Mitral Valve The mitral valve is normal in structure. Mild mitral regurgitation. No evidence of mitral valve stenosis. Tricuspid Valve The tricuspid valve is normal in structure. Mild tricuspid regurgitation[place] [address] 2 D/M-MODE ECHOCARDIOGRAM Name: KRISHNA CERNA Room: [facility]#: [id number] Admission: 07/03/20 Attend Phys: Isidoro Byers MD Discharge: Date of : 64 Date of Service: 07/03/20 1235 Report #: [id number] The pulmonary valve is normal in structure. There is no pulmonic valvular regurgitation. Great Vessels The aortic root is normal in size. IVC is normal in size and collapses >50% with inspiration. Pericardium There is no pericardial effusion. <Conclusion> The left ventricle is normal size. Left ventricular systolic function is normal. The left ventricular ejection fraction is within the normal range. LVEF is 55-60%. The right ventricle is normal size. The left atrium size is normal. The aortic valve is normal in structure. The mitral valve is normal in structure. Mild mitral regurgitation. The tricuspid valve is normal in structure. IVC is normal in size and collapses >50% with inspiration. There is no pericardial effusion. There is normal LV segmental wall motion. <ELECTRONICALLY SIGNED> By: Sedrick Odonnell MD, FACC 07/03/20 1235 1235 1235 Sedrick Odonnell MD, FACC /INF
== END ==
LOC: M.CRD 06-27 09:45 → M.RAD 09:48
PROVIDERS: ATTEND Internal Medicine Critical Care Medicine
DX: I08.1 Rheumatic disorders of both mitral and tricuspid valves (principal); R06.02 Shortness of breath; M25.562 Pain in left knee; M25.552 Pain in left hip; M54.42 Lumbago with sciatica, left side

== ENCOUNTER → 2020-07-07 | Outpatient (CLI) | payer BC | LOC: M.SLEEPLAB 20:26 | PROVIDERS: ATTEND Internal Medicine Critical Care Medicine | DX: G47.33 Obstructive sleep apnea (adult) (pediatric) (principal); R09.02 Hypoxemia ==

== ENCOUNTER 2020-08-14 13:33 | Emergency (ER) | payer BC ==
[~2020-08-14] VITALS: Ht 175.3 cm; Wt 95.3 kg
[2020-08-14] MEDS ORDERED: NORCO5 PO (15:35)
[2020-08-14] MEDS ORDERED: MEDROLDOSEPACK PO (15:35)
[2020-08-14 15:48] VITALS: BP 138/87
== END 2020-08-14 15:49 | disposition home or self-care (01) ==
LOC: M.ERS 13:33
DX: G89.29 Other chronic pain (principal); M25.562 Pain in left knee; M25.552 Pain in left hip

== ENCOUNTER → 2020-09-19 | Outpatient (CLI) | payer OTHER ==
[~2020-09-19] MED LIST changes: +MEDROLDOSEPACK PO; +NORCO5 PO
== END ==
LOC: M.MRI 14:25
PROVIDERS: ATTEND Internal Medicine
DX: M16.7 Other unilateral secondary osteoarthritis of hip (principal); M25.552 Pain in left hip; M87.852 Other osteonecrosis, left femur; M87.851 Other osteonecrosis, right femur; M25.452 Effusion, left hip

== ENCOUNTER 2021-04-20 15:00 | Emergency (ER) | payer OTHER, BC ==
[~2021-04-20] VITALS: Ht 175.3 cm; Wt 95.3 kg
[2021-04-20] MEDS ORDERED: MEDROLDOSEPACK PO (17:40)
[2021-04-20] MEDS ORDERED: APAP W/CODEINE1 TA2 PO (17:40)
[2021-04-20] MEDS ORDERED: FLEXERIL PO (17:40)
[2021-04-20] MEDS ORDERED: AUGMENTIN 500-1 EACH PO (17:41)
[2021-04-20 17:49] VITALS: BP 129/79
== END 2021-04-20 17:50 | disposition home or self-care (01) ==
LOC: M.ERS 15:00
DX: S09.90XA Unspecified injury of head, initial encounter (principal); M54.2 Cervicalgia; J32.4 Chronic pansinusitis; Z79.899 Other long term (current) drug therapy; V49.49XA Driver injured in collision with other motor vehicles in traffic accident, initial encounter; Y93.I9 Activity, other involving external motion; Y92.488 Other paved roadways as the place of occurrence of the external cause; Y99.8 Other external cause status